=== PATIENT | female | born 1975 | race Hispanic/Latino ===

== ENCOUNTER 2017-05-25 09:30 | Inpatient (IN) | payer OTHER ==
[~2017-05-25] VITALS: Ht 160 cm; Wt 68.4 kg
[~2017-05-25 09:30] MED LIST: ENDOCET 5-3251 EACH PO; IBUPROFEN800 MG PO; PRILOSEC20 MG PO
[2017-05-25 10:15] LABS: BASOPHIL (%) 0.2 % (0-1); EOSINOPHIL (%) 0 % (0-5); HEMATOCRIT 37.7 % (36.0-46.0); HEMOGLOBIN 12.8 G/DL (11.9-15.5); IMMATURE GRANULOCYTE (%) 0.5 % (0.0-0.7); LYMPHOCYTE (%) 4.5 % (15-42); LYMPHOCYTE COUNT 0.9 K/uL (1.0-2.8); MCH 29.2 PG (29.0-34.0); MCV 86.1 FL (83-99); MONOCYTE (%) 5.3 % (3-12); NEUTROPHIL (%) 89.5 % (45-76); NEUTROPHIL COUNT 17.1 K/uL (1.8-6.4); PLATELET COUNT 298 K/uL (156-360); RBC DIS.WIDTH-CV 12.9 % (11.8-14.6); RBC DIS.WIDTH-SD 40.2 % (39-53); RED BLOOD COUNT 4.38 M/uL (3.80-5.20); WHITE BLOOD COUNT 19.1 K/uL (4.1-10.2)
[2017-05-25 10:23] LABS: CHLORIDE 102 mEq/L (99-109); POTASSIUM 3.8 mEq/L (3.7-5.4); SODIUM 135 mEq/L (136-147)
[2017-05-25 10:25] LABS: GLUCOSE 116 mg/dL (70-99)
[2017-05-25 10:28] LABS: CREATININE 0.8 mg/dL (0.6-1.3); GFR ESTIMATE (CALCULATED) > 59 mL/min/
[2017-05-25 10:29] LABS: UREA NITROGEN (BUN) 10 mg/dL (9-23)
[2017-05-25 11:02] LABS: APPEARANCE CLOUDY ((CLEAR)); BILIRUBIN NEGATIVE; BLOOD SMALL; COLOR AMBER ((YELLOW)); GLUCOSE (STRIP) NEGATIVE; KETONES 20; LEUKOCYTES LARGE; NITRITE POSITIVE; PROTEIN (STRIP) 100; SPECIFIC GRAVITY 1.014 (1.000-1.030); UROBILINOGEN 0.2 MG/DL (0.2-1.0)
[2017-05-25 11:16] LABS: EPITHELIAL CELLS 3+ /HPF; RED BLOOD CELLS 0-5 /HPF (0-5); WHITE BLOOD CELLS TNTC /HPF (0-5)
[2017-05-25 11:17] LABS: BACTERIA 2+ /HPF; MUCUS 1+ /LPF; UCUL ADDED? YES
[2017-05-25 13:15] LABS: ALBUMIN 4.6 g/dL (3.2-4.8)
[2017-05-25 13:18] LABS: TOTAL PROTEIN 8.5 g/dL (6.4-8.3)
[2017-05-25 13:20] LABS: TOTAL BILIRUBIN 1.3 mg/dL (0.0-1.0)
[2017-05-25 13:21] LABS: ALKALINE PHOSPHATASE 109 IU/L (3-129)
[2017-05-25 13:23] LABS: AST (GOT) 11 IU/L (2-34); DIRECT BILIRUBIN 0.5 mg/dL (0.0-0.3)
[2017-05-25 13:24] LABS: ALT (GPT) 13 IU/L (3-49)
[2017-05-25] MEDS ORDERED: BACTRIM,SEPT1 TABLE1 PO (15:11)
[2017-05-25] MEDS ORDERED: METOCLOPRAMIDE10 MG PO (15:13)
[2017-05-25] MEDS ORDERED: BACTRIM,SEPT1 TABLET PO (15:17)
[2017-05-25 15:58] LABS: QUANTITATIVE HCG < 4.0 MIU/ML
[2017-05-25 17:11] VITALS: BP 106/61
[2017-05-25 23:45] VITALS: BP 116/55
[2017-05-26 07:30] VITALS: BP 124/60
[2017-05-26 10:14] LABS: BASOPHIL (%) 0.1 % (0-1); EOSINOPHIL (%) 0.1 % (0-5); HEMATOCRIT 29.5 % (36.0-46.0); IMMATURE GRANULOCYTE (%) 0.5 % (0.0-0.7); LYMPHOCYTE (%) 6.5 % (15-42); MCH 29.5 PG (29.0-34.0); MCHC 33.6 G/DL (30.0-36.0); MCV 87.8 FL (83-99); MONOCYTE (%) 4.8 % (3-12); MONOCYTE COUNT 0.7 K/uL (0-0.8); NEUTROPHIL COUNT 12.9 K/uL (1.8-6.4); PLATELET COUNT 222 K/uL (156-360); RBC DIS.WIDTH-CV 13.2 % (11.8-14.6); RBC DIS.WIDTH-SD 42.5 % (39-53); WHITE BLOOD COUNT 14.7 K/uL (4.1-10.2)
[2017-05-26 10:15] LABS: HEMOGLOBIN 9.9 G/DL (11.9-15.5); RED BLOOD COUNT 3.36 M/uL (3.80-5.20)
[2017-05-26 10:30] LABS: CHLORIDE 106 MEQ/L (99-109); CREATININE 0.6 MG/DL (0.6-1.3); GFR ESTIMATE (CALCULATED) > 59 mL/min/; GLUCOSE 131 mg/dL (70-99); POTASSIUM 3.5 MEQ/L (3.7-5.4); SODIUM 134 MEQ/L (136-147); UREA NITROGEN (BUN) 6 mg/dL (9-23)
[2017-05-26 10:31] LABS: ALBUMIN 3.2 G/DL (3.2-4.8); ALKALINE PHOSPHATASE 100 IU/L (3-129); ALT (GPT) 8 IU/L (3-49); AST (GOT) 8 IU/L (2-34); DIRECT BILIRUBIN 0.4 mg/dL (0.0-0.3); TOTAL BILIRUBIN 0.8 MG/DL (0.0-1.0); TOTAL PROTEIN 5.8 G/DL (6.4-8.3)
[2017-05-26 16:48] VITALS: BP 119/57
[2017-05-27 00:37] VITALS: BP 125/67
[2017-05-27 06:25] LABS: BASOPHIL (%) 0.1 % (0-1); EOSINOPHIL (%) 0.2 % (0-5); HEMATOCRIT 30.3 % (36.0-46.0); HEMOGLOBIN 9.7 G/DL (11.9-15.5); IMMATURE GRANULOCYTE (%) 0.4 % (0.0-0.7); LYMPHOCYTE (%) 13.2 % (15-42); LYMPHOCYTE COUNT 1.2 K/uL (1.0-2.8); MCV 87.3 FL (83-99); MONOCYTE (%) 7.4 % (3-12); MONOCYTE COUNT 0.7 K/uL (0-0.8); NEUTROPHIL (%) 78.7 % (45-76); NEUTROPHIL COUNT 7.1 K/uL (1.8-6.4); PLATELET COUNT 241 K/uL (156-360); RBC DIS.WIDTH-CV 13.3 % (11.8-14.6); RBC DIS.WIDTH-SD 42.8 % (39-53); RED BLOOD COUNT 3.47 M/uL (3.80-5.20)
[2017-05-27 07:06] LABS: CHLORIDE 109 MEQ/L (99-109); CREATININE 0.5 MG/DL (0.6-1.3); GFR ESTIMATE (CALCULATED) > 59 mL/min/; GLUCOSE 110 mg/dL (70-99); POTASSIUM 3.7 MEQ/L (3.7-5.4); UREA NITROGEN (BUN) 3 mg/dL (9-23)
[2017-05-27 07:18] LABS: SODIUM 141 MEQ/L (136-147)
[2017-05-27 08:00] VITALS: BP 130/67
[2017-05-27 15:33] VITALS: BP 175/92
[2017-05-27 23:35] VITALS: BP 132/68
[2017-05-28 06:30] LABS: HEMATOCRIT 30.9 % (36.0-46.0); HEMOGLOBIN 10.1 G/DL (11.9-15.5); MCH 28.6 PG (29.0-34.0); MCHC 32.7 G/DL (30.0-36.0); MCV 87.5 FL (83-99); PLATELET COUNT 254 K/uL (156-360); RBC DIS.WIDTH-CV 13.7 % (11.8-14.6); RBC DIS.WIDTH-SD 43.8 % (39-53); RED BLOOD COUNT 3.53 M/uL (3.80-5.20); WHITE BLOOD COUNT 6.2 K/uL (4.1-10.2)
[2017-05-28 06:55] LABS: CHLORIDE 104 MEQ/L (99-109); CREATININE 0.4 MG/DL (0.6-1.3); GFR ESTIMATE (CALCULATED) > 59 mL/min/; GLUCOSE 108 mg/dL (70-99); POTASSIUM 3.7 MEQ/L (3.7-5.4); SODIUM 135 MEQ/L (136-147); UREA NITROGEN (BUN) 6 mg/dL (9-23)
[2017-05-28 07:27] VITALS: BP 147/84
[2017-05-28 12:11] LABS: APPEARANCE CLEAR ((CLEAR)); BILIRUBIN NEGATIVE; BLOOD SMALL; COLOR YELLOW ((YELLOW)); GLUCOSE (STRIP) NEGATIVE; KETONES NEGATIVE; LEUKOCYTES NEGATIVE; NITRITE NEGATIVE; PROTEIN (STRIP) NEGATIVE; SPECIFIC GRAVITY 1.005 (1.000-1.030); UROBILINOGEN 0.2 MG/DL (0.2-1.0)
[2017-05-28 12:31] LABS: BACTERIA RARE /HPF; EPITHELIAL CELLS RARE /HPF; MUCUS TRACE /LPF; RED BLOOD CELLS 0-5 /HPF (0-5); WHITE BLOOD CELLS 0-5 /HPF (0-5)
[2017-05-28 15:30] VITALS: BP 140/86
[2017-05-28 23:27] VITALS: BP 138/87
[2017-05-29 08:00] VITALS: BP 129/82
[2017-05-29] MEDS ORDERED: BUTALB-APAP-CA1 EACH PO (10:09)
[2017-05-29] MEDS ORDERED: CEFDINIR300 MG PO (10:09)
== END 2017-05-29 14:58 | disposition home or self-care (01) | DRG 872 ==
LOC: EME 09:30 → EDOF 15:11 → 5SOUTH 15:11 → ENRESERV 15:23 → 5SOUTH 17:03
PROVIDERS: Hospitalist
DX: A41.51 Sepsis due to Escherichia coli [E. coli] (principal); N10 Acute pyelonephritis; B96.20 Unspecified Escherichia coli [E. coli] as the cause of diseases classified elsewhere; E87.6 Hypokalemia; K29.70 Gastritis, unspecified, without bleeding; D64.9 Anemia, unspecified; N20.0 Calculus of kidney; Z83.3 Family history of diabetes mellitus
CPT/HCPCS: 71046; 74177; 80048; 80076; 81003; 83605; 83735; 84702; 85025; 85027; 87040; 87077; 87086; 87186; 87801; 99281; 99285; J0696; J1650; J1885; J2270; J2405; J2543; J2765; J7030; J7050; S0028